=== PATIENT | female | born 1960 | race Caucasian/White ===

== ENCOUNTER → 2018-05-22 | Outpatient (CLI) | payer OTHER ==
[~2018-05-22] MED LIST: AMIT25TA PO; ATOR40TA59 PO; CELE100C PO; DULO60CA6 PO; GABA600T7 PO; HYDR-2769 PO; LOSA-73 PO; LUBI24CA7 PO; METO50TA6 PO; MORP30TA PO; OMEP20CA10 PO
--- NOTE | 2018-05-22 23:34 | PAIN ---
DATE OF SERVICE: 05/22/2018 INITIAL CONSULTATION FOR PAIN CLINIC CHIEF COMPLAINT: Left chest and axillary pain. HISTORY OF PRESENT ILLNESS: This is a 57-year-old female who presents with history of pain, status post left mastectomy in 2007. The patient reports pain began fairly quickly after the mastectomy and had reconstructive surgery about a year later with a breast implant and the pain became much, much worse. The patient reports she has been on for several years and she had a neuroma excision performed twice on the left side, which helped temporarily but the pain returned after that as well. The patient reports that for the last 10 years of dealing with this and has been suffering along. Basically, the patient has been taking amitriptyline as well as gabapentin at therapeutic doses as well as Celebrex, hydrocodone and morphine sulfate, which did decrease the pain with controlled by about 50% only. The patient reports the pain in the left chest, left axillary region and also some radiating to the posterior scapular region and the upper part of the arm as well as the deltoid and biceps and triceps region to the elbow. The patient had a spinal cord stimulator placed eventually that helped some at first but has had been reprogramed multiple times without any significant long lasting pain relief, although she still keeps it charged and still uses it and still feel the paresthesia in the left arm and chest but it is not decreased pain at this time. The patient reports it sounds like feels like it has been spreading over the last 6 months into the shoulder and arm more than the chest. The patient reports the pain is constant, throbbing, burning, aching, stinging difficulty with clothing touching the areas did sometimes as well. The patient is unable to wear a bra and has not been able to do for many years secondary to the pain. The patient reports it awakens her from sleep at night at least 2-3 times a night if she lies on her left side. It does not affect her bowel or bladder control or ability to walk. Again taking morphine twice a day at 90 mg and hydrocodone 20 mg 3 times a day as well. The patient rates her disability rate from 0-10, 10 being the worst, is a 6 with family and home responsibilities, recreation, occupation, sexual behavior, self-care and life support activities and 5 with social activity. PAST MEDICAL HISTORY: Significant for hypertension, type 2 diabetes, left breast cancer in 2007, history of dizziness and fainting. PAST SURGICAL HISTORY: Previous surgeries include mastectomy in 2007 and reconstruction in 2008, both done in [place]; D and C in 2013; cholecystectomy; previous appendectomy; neuroma excisions as noted and also spinal cord stimulator placement. CURRENT MEDICATIONS: Include omeprazole, hydrocodone, amitriptyline, Cymbalta, Amitiza, losartan, atorvastatin, Celebrex, metoprolol, morphine and gabapentin. ALLERGIES: The patient has no known drug allergies. FAMILY HISTORY: Significant for diabetes and hypertension. SOCIAL HISTORY: The patient does not smoke, does not drink alcohol and not using illegal, illicit or recreational drugs. She is , lives with her spouse in [place], [place]. The patient is relocating back home, which is in [place] in August of this year, once her 's training is completed at [employer]. REVIEW OF SYSTEMS: The patient's review of systems is positive for those items mentioned in history of present illness. All systems reviewed and otherwise negative. It is complete, full and well documented on the patient's chart. PHYSICAL EXAMINATION: VITAL SIGNS: The patient's blood pressure is 116/74, pulse 70, respirations 16 and temperature 98.2 degrees Fahrenheit. Height is 5 feet 9 inches and weight is 194 pounds. GENERAL: The patient is awake, alert, oriented, appropriate and very pleasant demeanor. HEENT: Head shows normocephalic and atraumatic. Extraocular movements are intact and symmetrical. Oral cavity: Mucous membranes moist and pink. Dentition is intact. NECK: Shows anterior throat supple without palpable lymphadenopathy noted. Swallow reflex is symmetrical. CHEST: Shows previous well-healed surgical scarring on the left with breast implant noted. Right side shows normal breast appearance. No discoloration in the chest. No erythema and no rashes. Breath sounds are clear to auscultation bilaterally. HEART: Shows S1 and S2 clear. No murmurs auscultated. ABDOMEN: Soft, nontender and nondistended. No palpable organomegaly is noted. No rebound or guarding demonstrated. BACK: Shows spine grossly in the midline, normal-appearing cervical lordotic curvature, thoracic kyphotic curvature and lumbar lordotic curvature. No rashes and no sores. The patient does have scarring in the thoracic distribution from spinal cord stimulator placement, otherwise normal in appearance. EXTREMITIES: The patient's upper extremities show deep tendon reflexes 2+ in the biceps and triceps tendons. Motor exam is strong with kiln furniture saw tender strength rated at 5/5 as is bicep and tricep flexion with some pain reported with biceps flexion on the left side with motion. The patient's shoulder shows difficulty with abduction past about 45 degrees secondary to pain in the axilla and radiating to the anterior chest. Right side shows full rotational motion without difficulty. The patient's chest shows no erythema and no rashes. There is significant allodynia over the mid axillary line on the left side anteriorly just inferior to the breast implant region to the midline on the left side only, which is very tender even to light touch in this region. IMPRESSION: 1. 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 2. History of type 2 diabetes. 3. Hypertension. PLAN: Options were discussed with the patient including conservative medical management, physical therapy, interventional techniques. We will start with topical Emla cream to the area of allodynia pain up to 4 times daily to see if it may decrease the pain to some extent. The patient will maintain the gabapentin, amitriptyline, Celebrex, morphine as well as hydrocodone. We did discuss when she is back in [place] to discuss with her plastic surgeon to see if the reconstruction could be redone as the patient has some significant asymmetry, which she is unhappy about with her current implant. All this will not help the pain. This may take care of the asymmetry discussed some topical compounded creams as well if the Emla cream is not significantly helpful. We may try this in the future also. The patient will follow up in approximately 1 month or as necessary. CARLOS DÍAZ MD DR: MAHSA/ge JOB#: [id number] / [id number]
== END | disposition home or self-care (01) ==
LOC: PNCL 10:15
PROVIDERS: ATTEND Anesthesiology
DX: M79.602 Pain in left arm (principal); E11.9 Type 2 diabetes mellitus without complications; I10 Essential (primary) hypertension; R07.89 Other chest pain; Z90.12 Acquired absence of left breast and nipple; Z85.3 Personal history of malignant neoplasm of breast; Z82.49 Family history of ischemic heart disease and other diseases of the circulatory system; Z83.3 Family history of diabetes mellitus
CPT/HCPCS: G0463